=== PATIENT | male | born 1945 | race Two or more races ===

== ENCOUNTER 2017-06-16 09:24 | Inpatient (IN) | payer OTHER, MEDICARE ==
--- NOTE | 2017-06-16 09:43 | EDPHY ---
H & P Time Seen by Provider: 06/16/17 09:39 HPI/ROS: CHIEF COMPLAINT: Right arm/hand weakness HISTORY OF PRESENT ILLNESS: The patient is a 72-year-old male who presents emergency department with hand weakness. The patient awoke from sleep 2 days ago and thought "I slept on it wrong. He had numbness and tingling in his hand. Since that time his symptoms have worsened. He has had progressive weakness and numbness. Is primarily limited to his right hand. 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 He denies any arm weakness. No neck pain. No headache or visual change. No other focal neurologic deficit. No recent trauma or fall. REVIEW OF SYSTEMS: My complete review of systems is negative except as mentioned in the HPI. Past Medical/Surgical History: BPH Social history: Patient does not smoke. Smoking Status: Former smoker Physical Exam: Vitals noted GENERAL: Well-appearing, in no acute distress, alert. HEENT: Eyes normal to inspection, normal pharynx, no signs of dehydration. NECK: No thyromegaly, no lymphadenopathy, supple. RESPIRATORY: Clear to auscultation bilaterally, no rales, rhonchi or wheezing. CVS: Regular rate and rhythm, no rubs, murmurs, or gallops. ABDOMEN: Soft, nontender, nondistended, no organomegaly. BACK: Normal to inspection, no CVA tenderness. SKIN: Normal color, no rash, warm, dry. No pallor. EXTREMITIES: No pedal edema, no calf tenderness, no Homans sign or cords, no joint swelling. Patient has swelling over his left forearm. The patient states that this been present for 20 years. No erythema or warmth. NEURO/PSYCH: Higher functions: Alert and Oriented x3. Normal speech and cognition. Normal mood and affect. Cranial nerves: Normal as tested. Cerebellar: Normal as tested. Good finger to nose, good [id number], normal gait. 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 He is unable to spread his fingers. He is unable to extend his thumb. Patient has strong wrist extension and flexion. Patient's by 7 tricep muscle group appear equal strength and symmetric with the left arm. Normal sensation. Normal reflexes. Constitutional: Initial Vital Signs Temperature (C) 36.4 C 06/16/17 09:38 Heart Rate 98 06/16/17 09:38 Respiratory Rate 20 06/16/17 09:38 Blood Pressure 179/93 H 06/16/17 09:38 O2 Sat (%) 91 L 06/16/17 09:38 O2 Delivery Mode Room Air Allergies/Adverse Reactions: No Known Allergies Allergy (Verified 06/16/17 09:37) Home Medications: Medication Instructions Recorded Herbal Drugs 06/16/17 Medical Decision Making ED Course/Re-evaluation: In the emergency department I discussed possible etiologies with the patient. I answered all his questions. Neurology was paged. I discussed the case with Dr. Patel from Neurology. He recommended the patient not have a CT scan of his brain. This was cancelled. He recommended MRI without contrast of the brain. Dr. Patel does not want cervical imaging at this time. I discussed this with the patient. He will be transferred to the [facility] emergency department for evaluation and imaging. I discussed the case with Dr. Westfall who accepted the patient. EMTALA was completed. 955: Sinus rhythm at 92. Normal axis. Normal intervals. No ST or T-wave abnormality. I rechecked the patient while here. He had no new focal neurologic deficits. 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 10 30: The patient had elevated troponin at 0.045. Repeat EKG was ordered. Repeat EKG: Sinus rhythm at 80. Normal axis. Normal intervals. No ST or T- wave abnormality. Differential Diagnosis: My differential includes but is not limited to nerve palsy, brachial plexus injury, disc herniation, ischemic CVA, hemorrhagic CVA, dissection, aneurysm - Data Points Laboratory Results: Laboratory Results 06/16/17 08:55 06/16/17 08:55 06/16/17 06/16/17 06/16/17 08:55 08:55 08:55 WBC 8.98 10^3/uL 10^3/uL (3.80-9.50) RBC 5.73 10^6/uL 10^6/uL (4.40-6.38) Hgb 16.5 g/dL g/dL (13.7-17.5) Hct 50.5 % % (40.0-51.0) MCV 88.1 fL fL (81.5-99.8) MCH 28.8 pg pg (27.9-34.1) MCHC 32.7 g/dL g/dL (32.4-36.7) RDW 12.9 % % (11.5-15.2) Plt Count 235 10^3/uL 10^3/uL (150-400) MPV 9.2 fL fL (8.7-11.7) Neut % (Auto) 84.0 % H % (39.3-74.2) Lymph % (Auto) 10.9 % L % (15.0-45.0) Payne % (Auto) 3.6 % L % (4.5-13.0) Eos % (Auto) 0.9 % % (0.6-7.6) Baso % (Auto) 0.3 % % (0.3-1.7) Nucleat RBC Rel Count 0.0 % % (0.0-0.2) Absolute Neuts (auto) 7.54 10^3/uL H 10^3/uL (1.70-6.50) Absolute Lymphs (auto) 0.98 10^3/uL L 10^3/uL (1.00-3.00) Absolute Monos (auto) 0.32 10^3/uL 10^3/uL (0.30-0.80) Absolute Eos (auto) 0.08 10^3/uL 10^3/uL (0.03-0.40) Absolute Basos (auto) 0.03 10^3/uL 10^3/uL (0.02-0.10) Absolute Nucleated RBC 0.00 10^3/uL 10^3/uL (0-0.01) Immature Gran % 0.3 % % (0.0-1.1) Immature Gran # 0.03 10^3/uL 10^3/uL (0.00-0.10) PT 13.9 SEC SEC (12.0-15.0) INR 1.08 (0.83-1.16) APTT 28.7 SEC SEC (23.0-38.0) Sodium 141 mEq/L mEq/L (134-144) Potassium 4.0 mEq/L mEq/L (3.5-5.2) Chloride 99 mEq/L mEq/L (97-110) Carbon Dioxide 26 mEq/l mEq/l (22-31) Anion Gap 16 mEq/L mEq/L (8-16) BUN 22 mg/dL mg/dL (7-23) Creatinine 1.2 mg/dL mg/dL (0.7-1.3) Estimated GFR 60 Glucose 120 mg/dL H mg/dL (70-100) Calcium 9.3 mg/dL mg/dL (8.5-10.4) Troponin I 0.045 ng/mL H ng/mL (0.000-0.034) Departure - Departure Disposition: [facility] Inpatient Acute Clinical Impression: Right hand weakness Condition: Good Referrals: NONE *PRIMARY CARE P,. [Primary Care Provider] - As per Instructions
--- NOTE | 2017-06-16 09:56 | CPEKG ---
Heart Rate: 92 RR Interval: 652 P-R Interval: 148 QRSD Interval: 96 QT Interval: 404 QTC Interval: 500 P Culber[place]: 70 QRS [place]: 71 T Wave [place]: 56 EKG Severity - ABNORMAL ECG - EKG Impression: SINUS RHYTHM EKG Impression: PROBABLE LEFT ATRIAL ABNORMALITY EKG Impression: BORDERLINE T WAVE ABNORMALITIES EKG Impression: BORDERLINE PROLONGED QT INTERVAL Electronically Signed By: Sybil Scott 16-Jun-2017 14:51:53
[2017-06-16 10:03] LABS: PLATELET COUNT 235 10^3/uL (150-400)
[2017-06-16 10:27] LABS: INR 1.08 (0.83-1.16); PROTIME(PATIENT) 13.9 SEC (12.0-15.0)
--- NOTE | 2017-06-16 11:04 | CPEKG ---
Heart Rate: 80 RR Interval: 750 P-R Interval: 160 QRSD Interval: 94 QT Interval: 408 QTC Interval: 471 P Cambridge: 68 QRS Cambridge: 64 T Wave Cambridge: 52 EKG Severity - BORDERLINE ECG - EKG Impression: SINUS RHYTHM EKG Impression: PROBABLE LEFT ATRIAL ABNORMALITY Electronically Signed By: Sybil Scott 16-Jun-2017 14:51:53
[2017-06-16] MEDS ORDERED: CLOPIDOGREL BISULFATE 75 MG TAB PO ONE (13:53)
[2017-06-16] MEDS ORDERED: IOPAMIDOL (ISOVUE 370) 100 ML BTL IV ONE (13:59)
[2017-06-16] MEDS ORDERED: LABETALOL HCL 5 MG/ML 20 ML MDV IVP PRN (14:22)
[2017-06-16] MEDS ORDERED: ONDANSETRON 4 MG/2 ML VIAL IVP PRN (14:26)
[2017-06-16] MEDS ORDERED: ACETAMINOPHEN 325 MG TAB PO PRN (14:26)
--- NOTE | 2017-06-16 14:53 | EDPHY ---
H & P Time Seen by Provider: 06/16/17 09:39 HPI/ROS: CHIEF COMPLAINT: Right hand weakness HISTORY OF PRESENT ILLNESS: 72-year-old male presents to the emergency department by ambulance from [facility] with right hand weakness. The patient states that he woke up 2 days ago and thought that he "slept wrong ". He states he is having difficulty gripping things and moving his right hand. He has no associated headache. No reported trauma. No chest pain or difficulty breathing. Denies symptoms in the left upper extremity or in his lower extremities bilaterally. REVIEW OF SYSTEMS: Constitutional: No fever, no chills. Eyes: No double or blurry vision. ENT: No sore throat. Respiratory: No cough, no shortness of breath. Cardiac: No chest pain. Gastrointestinal: No abdominal pain, vomiting or diarrhea. Genitourinary: No dysuria. Musculoskeletal: No neck or back pain. Skin: No rashes. Neurological: No headache. Past Medical/Surgical History: Negative Social History: Single Smoking Status: Former smoker Physical Exam: General Appearance: Alert, no distress. Blood pressure 187/107. Mentating normally and answering questions appropriately. Eyes: Pupils equal and round. Extraocular motions are all intact. ENT: Mouth: Mucous membranes moist. Respiratory: No wheezing, rhonchi, or rales, lungs are clear to auscultation. Cardiovascular: Regular rate and rhythm. Gastrointestinal: Abdomen is soft and nontender, no masses, no rebound or guarding, bowel sounds normal. Neurological: Alert and oriented x 3, cranial nerves II through XII grossly intact Skin: Warm and dry, no rashes. Musculoskeletal: Nontender to palpate along the cervical, thoracic or lumbar spine. Neck is supple. Extremities: Swelling noted in the volar aspect of the proximal left forearm which is chronic for him. Nontender to palpate. 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 Unable to extend or family was fingers out. He is unable to touch his thumb to his small finger. He has normal sensation to light touch with normal 2 point discrimination. Strong radial pulse at his right wrist. Biceps and triceps strength is equal. Normal gait. Psychiatric: Patient is oriented X 3, there is no agitation. Constitutional: Initial Vital Signs Temperature (C) 36.4 C 06/16/17 09:38 Heart Rate 98 06/16/17 09:38 Respiratory Rate 20 06/16/17 09:38 Blood Pressure 179/93 H 06/16/17 09:38 O2 Sat (%) 91 L 06/16/17 09:38 O2 Delivery Mode Room Air Allergies/Adverse Reactions: No Known Allergies Allergy (Verified 06/16/17 09:37) Home Medications: Medication Instructions Recorded Aspirin [Aspirin 325 mg (*)] 650 mg PO Q2D 06/16/17 Herbals/Supplements -Info Only 1 ea PO DAILY 06/16/17 Naproxen Sod/Diphenhydramine 1 each PO HS 06/16/17 [Aleve Pm Caplet] Medical Decision Making - Diagnostics Imaging Results: Imaging Impressions Brain MRI 06/16/17 11:59 Impression: Moderate periventricular and deep hemispheric white matter change, which is nonspecific and can be seen with small vessel ischemic disease. There is diffusion restriction of one white matter lesion suggesting acute lacunar infarct in the left periventricular location at the junction of the posterior left frontal anteroparietal region. No other findings for acute infarct. Mild generalized cerebral atrophy. Results called and discussed with Taryn Carter PA-C on June 16, 2017 at 1331 hours. Cervical Spine MRI 06/16/17 11:59 Impression: Mild multilevel degenerative disk and degenerative joint disease of the cervical spine as detailed above by level. Results called and discussed with Taryn Carter PA-C, on 06/16/2017, 13:55. Imaging: Discussed imaging studies w/ crew caller Radiologist ED Course/Re-evaluation: 72-year-old male presents to the department with right hand weakness. The patient was sent from [facility] where they spoke with the on- call neurologist, Dr. Bert Patel. MRI of the brain and cervical spine were ordered which revealed an acute 8 mm lacunar infarct in the left frontoparietal junction of the brain. There is small vessel ischemic changes noted in the brain as well. MRI of the cervical spine revealed diffuse degenerative changes with mild to moderate stenosis. This was reported to me by Dr. Fabián Aguero. I spoke with Dr. Bert Patel about patient's MRI findings. He recommended 75 mg of Plavix p. o. today and daily. He also recommended obtaining CTA of the head and the neck prior to going to the floor. Patient will be admitted to Dr. Dyana Dougherty to the Ortho Neuro floor. The case was discussed with Dr. Gene Westfall, secondary supervising physician, who did not directly evaluate the patient but agrees with treatment and plan. Differential Diagnosis: Including but not limited to CVA, cord compression, radial nerve palsy, electrolyte abnormality - Data Points Laboratory Results: Laboratory Results 06/16/17 08:55 06/16/17 08:55 06/16/17 06/16/17 06/16/17 08:55 08:55 08:55 WBC 8.98 10^3/uL 10^3/uL (3.80-9.50) RBC 5.73 10^6/uL 10^6/uL (4.40-6.38) Hgb 16.5 g/dL g/dL (13.7-17.5) Hct 50.5 % % (40.0-51.0) MCV 88.1 fL fL (81.5-99.8) MCH 28.8 pg pg (27.9-34.1) MCHC 32.7 g/dL g/dL (32.4-36.7) RDW 12.9 % % (11.5-15.2) Plt Count 235 10^3/uL 10^3/uL (150-400) MPV 9.2 fL fL (8.7-11.7) Neut % (Auto) 84.0 % H % (39.3-74.2) Lymph % (Auto) 10.9 % L % (15.0-45.0) Bracken % (Auto) 3.6 % L % (4.5-13.0) Eos % (Auto) 0.9 % % (0.6-7.6) Baso % (Auto) 0.3 % % (0.3-1.7) Nucleat RBC Rel Count 0.0 % % (0.0-0.2) Absolute Neuts (auto) 7.54 10^3/uL H 10^3/uL (1.70-6.50) Absolute Lymphs (auto) 0.98 10^3/uL L 10^3/uL (1.00-3.00) Absolute Monos (auto) 0.32 10^3/uL 10^3/uL (0.30-0.80) Absolute Eos (auto) 0.08 10^3/uL 10^3/uL (0.03-0.40) Absolute Basos (auto) 0.03 10^3/uL 10^3/uL (0.02-0.10) Absolute Nucleated RBC 0.00 10^3/uL 10^3/uL (0-0.01) Immature Gran % 0.3 % % (0.0-1.1) Immature Gran # 0.03 10^3/uL 10^3/uL (0.00-0.10) PT 13.9 SEC SEC (12.0-15.0) INR 1.08 (0.83-1.16) APTT 28.7 SEC SEC (23.0-38.0) Sodium 141 mEq/L mEq/L (134-144) Potassium 4.0 mEq/L mEq/L (3.5-5.2) Chloride 99 mEq/L mEq/L (97-110) Carbon Dioxide 26 mEq/l mEq/l (22-31) Anion Gap 16 mEq/L mEq/L (8-16) BUN 22 mg/dL mg/dL (7-23) Creatinine 1.2 mg/dL mg/dL (0.7-1.3) Estimated GFR 60 Glucose 120 mg/dL H mg/dL (70-100) Calcium 9.3 mg/dL mg/dL (8.5-10.4) Troponin I 0.045 ng/mL H ng/mL (0.000-0.034) Medications Given: Discontinued Medications Clopidogrel Bisulfate (Plavix) 75 mg PO EDNOW ONE Stop: 06/16/17 13:54 Last Admin: 06/16/17 14:40 Dose: 75 mg Departure - Departure Disposition: [facility] Inpatient Acute Clinical Impression: Right hand weakness CVA (cerebral vascular accident) Qualifiers: CVA mechanism: embolism Precerebral and cerebral artery: unspecified precerebral artery Qualified Code(s): I63.10 - Cerebral infarction due to embolism of unspecified precerebral artery Condition: Good
--- NOTE | 2017-06-16 15:45 | GHP ---
[f rep st] HISTORY AND PHYSICAL DATE OF ADMISSION: 06/16/2017 CHIEF COMPLAINT: Right hand weakness. HISTORY OF PRESENT ILLNESS: The patient is a 72-year-old male, who noticed some tingling that lasted a few minutes to his right hand 3 days ago. It initially went away. He woke up the next morning an d his entire right hand was numb. He stayed home from work thinking he just slept on it funny and th en went to work yesterday and worked 8 hours. 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 He denies any chest pain or shortness of breath. He has maybe noticed a little decreased exercise tolerance when he is huntin g at altitude. PAST MEDICAL HISTORY: BPH which he self-treats with herbal supplements. MEDICATIONS: Please see computer record for full, detailed list. He takes quite a bit of ibuprofen. ALLERGIES: No known drug allergies. SOCIAL HISTORY: Quit smoking at 71 years. Prior to that, smoked 2 packs per day for 40 years. Jocelyn ks alcohol 1-2 drinks 3 times a week. He lives alone; he is . 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 REVIEW OF SYSTEMS: A complete review of systems was obtained. Review of systems negative on constit utional, HEENT, GI, pulmonary, cardiovascular, , hematology, skin, musculoskeletal, endocrine, psyc h, and for the positives as under HPI. FAMILY HISTORY: Mother of bladder cancer. Father had hypertension, [place] x2, and eventually of a brain aneurysm. PHYSICAL EXAMINATION: GENERAL: A well-developed, well-nourished male, in no acute distress. VITAL SIGNS: Temperature is 36.8, pulse 78, blood pressure 180/116, saturating 92% on room air. HEENT: E yes: Normal conjunctivae. Pupils equal and reactive to light. Normal ears and nose. Hearing intac t. Normal lips and teeth. Oropharynx moist. NECK: Trachea midline. No thyromegaly. CHEST: Norm al effort. LUNGS: Clear to auscultation bilaterally. CARDIOVASCULAR: Regular rhythm. No murmur. No lower extremity edema. ABDOMEN: Soft, nontender. No hepatosplenomegaly. SKIN: Warm, dry, int act. No rash. MUSCULOSKELETAL: No cyanosis or clubbing. Strength is 1/5 in his right hand instrumentation technician. Proximal strength of the shoulders is still intact. Lower extremity strength and sensation are monae l. NEUROLOGIC: Cranial nerves intact otherwise intact. PSYCHIATRIC: Alert and oriented x3. Monae l affect. Normal judgment. Normal memory. LABORATORY DATA: White count 8.98, hematocrit 50.5, platelets 235. Sodium 141, potassium 4.0, chlor robert 99, bicarb 26, BUN 22, creatinine 1.2, glucose 120. Troponin 0.048. INR is 1.08. EKG reviewed by me: My personal interpretation: Normal sinus rhythm, no ST-T wave changes. IMAGING: Cervical MRI is negative. MRI of the brain shows an acute lacunar stroke on the left. DISPOSITION: I have spoken with SULTANA Carter the emergency room provider. The patient will be a dmitted to Orthopedic Neurology with telemetry. ASSESSMENT AND PLAN: 1. Acute stroke, lacunar, probably hypertension related. CT angiogram of the head and neck are pend ing. I will also order an echocardiogram. We will start him on a daily aspirin and check a lipid pa pratik in the morning. Will consult Physical Therapy and Occupational Therapy. 2. Hypertension. We will allow permissive hypertension acutely, although I wonder at this point if his elevated blood pressure may be due to untreated underlying essential hypertension. We will discu ss with Neurology the timing of starting oral medications. 3. Borderline troponin elevation. He really has minimal symptoms, except some very mild decreased e xercise tolerance when he exercises at altitude. He may eventually benefit from stress testing. 4. Benign prostatic hypertrophy. He is currently satisfied with his management on an herbal medicati on. Could consider Flomax. 5. Code status: Full. 6. Admission status: We will admit to observation and re-evaluate tomorrow regarding ongoing inpati ent needs. 7. Deep venous thrombosis prophylaxis. He is high risk. Will place on subcu Lovenox. /[id number]/MODL
--- NOTE | 2017-06-16 17:06 | ECHO ---
[email or web address] [address] [address] Main: [phone] Fax: [email or web address] Echocardiogram Name: DEJUAN BRYAN MR#: [id number] Study Date: 06/16/2017 Study Time: 02:58 PM Date of : 1945 Age: 72 year(s) Height: 193 cm (76 in.) Weight: 117.94 kg (260 lb.) BSA: 2.48 m2 Gender: Male Examination: Echo Indication: TIA, Rt Arm tingling Image Quality: Contrast: Requested by: Dyana Dougherty BP: 194 mmHg/120 mmHg Heart Rate: Rhythm: Normal sinus rhythm Indication: TIA, Rt Arm tingling Procedure Staff Retail Branch Manager: Juan Carlos Martinez Reading Physician: Rosendo Barragan Requesting Provider: Conclusions: Normal size left ventricle. Mildly to moderately reduced systolic funtion. EF is 43 %. Grade 1 diastolic dysfunction (abnormal relaxation). There is mild to moderate global hypokinesis.. Normal RV function. The left atrium is normal in size. The right atrium is normal in size. No pericardial effusion. Measurements: Chambers Valvular Assessment AV/MV Valvular Assessment TV/PV Normal Normal Normal Name Value Range Name Value Range Name Value Range Ao Steph (MM): 4.4 cm (2.2 cm-3.7 AV Vmax: 1.64 m/s (1 m/s-1.7 PV Vmax: 1.10 m/s (0.6 m/s-0.9 cm) m/s) m/s) IVSd (2D): 1.2 cm (0.6 cm-1.1 AV maxP mmHg ( - ) PV PGmax: 5 mmHg ( - ) cm) LVOT Vmax: 0.68 m/s (0.7 m/s-1.1 LVDd (2D): 5.2 cm (4.2 cm-5.9 m/s) cm) MV E Vmax: 0.59 m/s ( - ) LVDs (2D): 4.2 cm (2.1 cm-4 MV A Vmax: 1.11 m/s ( - ) cm) MV E/A: 0.53 ( - ) LVPWd (2D): 1.4 cm (0.6 cm-1 cm) LVEF (BP): 43 % (>=55 %) Continued Measurements: Valvular Assessment AV/MV Name Value Patient: DEJUAN BRYAN Study Date: 06/16/2017 Page 1 of 2 02:58 PM MV E/E' Lateral: 8.80 Findings: Left Ventricle: Normal size left ventricle. Mild concentric LV hypertrophy. Mildly to moderately reduced systolic funtion. EF is 43 %. Grade 1 diastolic dysfunction (abnormal relaxation). There is mild to moderate global hypokinesis.. Right Ventricle: Normal size right ventricle. Normal RV function. Left Atrium: The left atrium is normal in size. There is no PFO by colorflow doppler. Right Atrium: The right atrium is normal in size. Mitral Valve: Mild mitral valve leaflet calcification is present. Mild mitral annular calcification. Aortic Valve: The aortic valve is tri-leaflet. Mild aortic cusp calcification is noted. No aortic valve stenosis is present. Tricuspid Valve: The tricuspid valve appears normal. Pulmonic Valve: The pulmonic valve is normal in appearance and function. Aorta: The aorta is normal. Pericardium: No pericardial effusion. Exam Comments: Clinical correlation is recommended.. (No Signature Object) Patient: DEJUAN BRYAN Study Date: 06/16/2017 Page 2 of 2 02:58 PM [id number]
[2017-06-16] MEDS: LISINOPRIL 10 MG TAB PO SCH (18:00)
[2017-06-17] MEDS ORDERED: ASPIRIN 325 MG TAB PO SCH (09:00)
--- NOTE | 2017-06-17 09:46 | HOSPPROG ---
Hospitalist Progress Note Assessment/Plan: #Acute lacunar stroke: likely related to HTN -LDL not at goal, add statin. Plavix. PT/OT #BPH: on herbal supplement #Indeterminate troponin: TTE shows global hypokinesis, EF 43%. Stress test given intermittent dyspnea, HTN and tobacco hx #HTN: initially allowed permissive HTN. Better-controlled today on ACEI #Diet: cardiac #Disp: cont inpatient admission for cardiac stress test Subjective: hand weakness today. Objective: Vital Signs Temp Pulse Resp BP Pulse Ox 36.5 C 72 21 H 138/103 H 87 L 06/17/17 08:00 06/17/17 08:00 06/17/17 08:00 06/17/17 08:00 06/17/17 08:00 06/16/17 06/17/17 06/18/17 05:59 05:59 05:59 Intake Total 400 Output Total 500 Balance -100 PT 13.9 SEC (12.0-15.0) 06/16/17 08:55 INR 1.08 (0.83-1.16) 06/16/17 08:55 - Physical Exam Constitutional: no apparent distress Eyes: PERRL Ears, Nose, Mouth, Throat: moist mucous membranes, hearing normal Cardiovascular: regular rate and rhythym, no murmur, rub, or gallop, No edema Respiratory: no respiratory distress, no rales or rhonchi Gastrointestinal: normoactive bowel sounds, soft, non-tender abdomen Genitourinary: No burgess in urethra Musculoskeletal: other (right hand weakness) Neurologic: weakness (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
[2017-06-17] MEDS: LISINOPRIL 10 MG TAB PO SCH (10:21)
[2017-06-17] MEDS: ENOXAPARIN 40 MG/0.4 ML SYR SC SCH (10:21)
[2017-06-17] MEDS: CLOPIDOGREL BISULFATE 75 MG TAB PO SCH (10:21)
[2017-06-17] MEDS: ATORVASTATIN CALCIUM 20 MG TAB PO SCH (10:24)
--- NOTE | 2017-06-17 11:32 | PDMN ---
Medical Necessity Medical necessity: C/M review: est. > 2 MN LOS for eval and TX acute lacunar stroke, acute and persistent right hand weakness, indeterminate troponin requiring planned 06/17/2017 myocardial perfusion scan, ongoing cardiac monitoring, acute inpt PT/OT/ST, comorbid hypertension, BPH per 06/17/2017 Hospitalist progress note.
[2017-06-17] MEDS ORDERED: PNEUMOC 13-VAL CONJ-DIP CRM/PF 0.5 ML SYR IM ONE (13:36)
[2017-06-17] MEDS ORDERED: FLU VACC QS 2017-18 (3YR+)/PF 0.5 ML SYR (FLUARIX QUAD) IM ONE (13:36)
--- NOTE | 2017-06-17 15:09 | ASMTCMCOM ---
CM Note CM Note Notes: Pt admitted with acute lacunar infarct. PT/OT cleared. Cardiac stress test planned. Anticipate d/c with no CM needs but will continue to follow for any change in needs. Date Signed: 06/17/2017 03:10 PM Electronically Signed By:ARJUN Cesar
--- NOTE | 2017-06-17 15:38 | GCON ---
[f rep st] CONSULTATION NEUROLOGY CONSULTATION REFERRING PHYSICIAN: Dyana Dougherty MD CHIEF COMPLAINT: Hand weakness. HISTORY OF PRESENT ILLNESS: The patient is a very pleasant 72-year-old gentleman who has not seen doctors for many years and, as such, does not have any comorbidities treated at this point. He began having sensory and motor symptoms in his right hand Monday around 3:00, which waxed and waned , and then when he woke up Monday he had right hand weakness. He waited 2 days before seeking care and came in yesterday afternoon [place] [facility] He was transferred to our ER for an MRI brain, which showed a small lacunar-type infarct at the junction of the posterior left frontal and parietal white matter in the subcortical region. This is the localization for hand strength on the right matching with his symptoms. He had a CTA of his head and neck which showed no acute vascular abnormalities. Echocardiogram did show some global hypokinesis. He also had lower EF with some diastolic dysfunction. Left atrium was normal size. No PFO. No intracardiac thrombus. Repeat lipids showed an LDL of 114, total of 175. Troponins were elevated without anginal-type symptoms. REVIEW OF SYSTEMS: Ten-point review of system was done and only pertinent as per HPI. For past medical history, social history, family history, medications, and allergies, see Dr. Dougherty' H and P. PHYSICAL EXAMINATION: VITAL SIGNS: Blood pressure 137/84, temperature 36.4, pulse 75, respirations 16. GENERAL: No acute distress. HIGHER MENTAL FUNCTIONS: He is awake and alert. No aphasia. Cranial nerve exam normal 2 through 7, 11, and 12. No dysarthria. No swallowing problems. MOTOR: The patient has right hand weakness with weakness in finger abduction and flexion, and wrist extension, with some less prominent subjective numbness in the hand. Otherwise, motor exam was normal in terms of strength, tone, and reflexes throughout. SENSORY: Normal light touch outside of what is noted above. COORDINATION: Normal accuracy and normal gait. IMPRESSION/PLAN: 1. Lacunar infarct. 2. Hypertension, previously untreated. 3. Dyslipidemia. 4. Abnormal echocardiogram. Essentially, this gentleman likely had a small lacunar infarct due to uncontrolled high blood pressure with a hypertensive emergency-type syndrome, including end-organ dysfunction as evidenced by the lacunar infarct. He has not seen a doctor for many years and was unaware that he had high blood pressure. He has had blood pressures as high as 192/112 here in the hospital. We discussed at length that this is likely a lacunar stroke from untreated hypertension. He understands. Angiography of the head and neck was negative for acute changes. Echocardiogram, as noted above, is abnormal. Going forward, he needs to be on Plavix 75 mg daily indefinitely. He was not taking any antithrombotic when this event occurred. We discussed potential risks, benefits, and alternatives of Plavix. He should also be on a statin and blood pressure medication with close followup with primary care. He will establish primary care in [place] with the [facility] to closely monitor his blood pressure, lipids, blood sugar, etc. I understand he will be having stress testing for his heart which will be tomorrow. His hemoglobin A1c is pending and to be followed up by primary care. Going forward, I also recommend he have a 30-day event monitor and follow up with Cardiology regarding his cardiac status. We need to screen him for paroxysmal atrial fibrillation. He has had no atrial fibrillation, as far as I have been informed while here in the hospital. He has had PT evaluation for his right hand weakness and will follow his exercises. Finally, he will follow up with me in 4-6 weeks as an outpatient to review all the above. We will sign off and continue to follow this patient as needed. Please do not hesitate to call with any questions or changes in neurologic status with this very pleasant patient. TIME SPENT: Seventy total minutes floor time reviewing imaging, records, labs, direct counseling with the patient, and coordination of care. /[id number]/MODL MTDD
[2017-06-18] MEDS: CLOPIDOGREL BISULFATE 75 MG TAB PO SCH (08:27)
[2017-06-18] MEDS: ENOXAPARIN 40 MG/0.4 ML SYR SC SCH (08:27)
[2017-06-18] MEDS: ATORVASTATIN CALCIUM 20 MG TAB PO SCH (08:27)
[2017-06-18] MEDS: LISINOPRIL 10 MG TAB PO SCH (08:27)
--- NOTE | 2017-06-18 08:36 | HOSPPROG ---
Hospitalist Progress Note Assessment/Plan: #Acute lacunar stroke: likely related to HTN -LDL not at goal, add statin. Plavix. Home OT #BPH: on herbal supplement #Indeterminate troopnin: TTE shows global hypokinesis, EF 43%. Stress test given intermittent dyspnea, HTN and tobacco hx -initial Lexiscan imaging abnormal. I spoke with Dr. Coleman who said elective cath appropriate given no anginal sxs. Add BB -spoke with patient and he would rather have cath in hospital. Plan for cath on Monday #HTN: initially allowed permissive HTN. Better-controlled today on ACEI #Diet: cardiac #Disp: may DC today if normal Lexiscan Time spent on visit: 60 min. 40min reviewing data and counseling pt on treatment plan. Remaining time d/w Dr. Coleman and patient's son Subjective: hand still weak. No CP or SOB Objective: Vital Signs Temp Pulse Resp BP Pulse Ox 36.6 C 70 16 136/60 H 93 06/18/17 07:56 06/18/17 07:56 06/18/17 07:56 06/18/17 08:27 06/18/17 07:56 Laboratory Results 06/18/17 04:41 06/17/17 06/18/17 06/19/17 05:59 05:59 05:59 Intake Total 1999 Balance 1999 PT 13.9 SEC (12.0-15.0) 06/16/17 08:55 INR 1.08 (0.83-1.16) 06/16/17 08:55 - Physical Exam Constitutional: obese Eyes: PERRL Ears, Nose, Mouth, Throat: moist mucous membranes Cardiovascular: regular rate and rhythym Respiratory: no respiratory distress, no rales or rhonchi Gastrointestinal: normoactive bowel sounds Genitourinary: no bladder fullness Skin: warm Musculoskeletal: other (right hand puppy walker weak) Neurologic: AAOx3, CN II-XII Intact Psychiatric: interacting appropriately ICD10 Worksheet Patient Problems: Problems Problem Status Onset CVA (cerebral vascular accident) Acute Right hand weakness Acute Skier's thumb Acute Thumb laceration Acute
[2017-06-18] MEDS ORDERED: REGADENOSON 0.4 MG/5 ML SYR IVP ONE (09:30)
--- NOTE | 2017-06-18 11:21 | CPR ---
[f rep st] NONINVASIVE CARDIAC PROCEDURE REPORT DATE OF PROCEDURE: 06/18/2017 PROCEDURE PERFORMED: Pharmacologic stress test. INDICATION FOR PROCEDURE: Dyspnea on exertion and recent post CVA. PROCEDURE: After informed consent was obtained for Lexiscan nuclear stress test, the patient underwe nt infusion of Lexiscan 0.4 mg over 10 seconds. At peak hyperemia, he was injected with Tc-99m sesta mibi. The patient tolerated the procedure well. He had no ECG changes during pharmacologic stress. He had no symptoms. Paced heart rate of 72 beats in normal sinus rhythm with resting blood pressure of 148/81, with oxygen saturation of 89%. Prior to the start of the test, he was put on 4 L of oxyg en via nasal cannula. Oxygen increased to 93%. His oxygen saturations remained normal throughout th e study while on 4 L of oxygen. Post injection, blood pressure was 159/73 and decreased to 142/78 at 3 minutes post injection. CONCLUSION: 1. Normal pharmacologic stress. 2. Nuclear images pending. /[id number]/MODL
--- NOTE | 2017-06-18 12:55 | ASDISCHSUM ---
Discharge Information Plan Status:Home with No Needs Medically Cleared to Leave:06/20/2017 Discharge Date:06/21/2017 02:28 PM CM D/C Disposition:Home, Routine, Self-Care ADT D/C Disposition:Home, Routine, Self-Care Projected Discharge Date:06/21/2017 12:00 AM Transportation at D/C: Discharge Delay Reason: Follow-Up Date:06/21/2017 12:00 AM Discharge Slot: Final Diagnosis: Placement Information Patient Contact Information Contact Name:JARROD Relationship:Crow Address: City: [facility] Phone: [facility] Code: Email: Financial Information Financial Class: Primary Plan Desc:MEDICARE INPATIENT Primary Plan Number:[id number] Secondary Plan Desc:[employer]/MDR SUPPLEMENT Secondary Plan Number:[id number] Assessment Information [facility] CM Progress Note CM Note CM Note Notes: Pt admitted with acute lacunar infarct. PT/OT cleared. Cardiac stress test planned. Anticipate d/c with no CM needs but will continue to follow for any change in needs. Date Signed: 06/17/2017 03:10 PM Electronically Signed By:ARJUN Cesar Case Management Discharge Plan Note Case Management Discharge Discharge Order Complete? Answers: Yes Patient to Obtain Answers: Independently Medications Transportation Arranged Answers: Family/Friends Transport will Pick (Date 06/18/2017 12:00 AM & Time) DEEDEEALA Complete Answers: No Notes: NA Case Management Transport Answers: No Notes: NA Form Complete Faxed Final Orders Answers: No Notes: NA Agency/Facility Transfer Answers: No Notes: NA Report Printed & Faxed to Receiving Agency Family Notified Answers: Yes Discharge Comments Notes: Patient does not have a PCP. Gave patient names of practices and phone numbers to call and make an appointment. Since it is Monday, all the offices were closed today. Patient will call on Monday for an appointment week after per Dr. Trejo. Date Signed: 06/18/2017 12:59 PM Electronically Signed By:Keturah Apple LCSW [facility] CM Progress Note CM Note CM Note Notes: Chart reviewed. Angiogram done. See MD reports. Per therapies no needs identified. CM available should needs arise. Date Signed: 06/20/2017 03:57 PM Electronically Signed By:Jordyn Jain RN Intervention Information Intervention Type:*IM-Signed Date of Service:06/21/2017 01:26 PM Patient Type:Inpatient Staff Member:Claribel Lazo Hours: Discipline: Severity: Comment:
[2017-06-18] MEDS: METOPROLOL TARTRATE 25 MG TAB PO SCH (20:09)
[2017-06-19] MEDS: ATORVASTATIN CALCIUM 20 MG TAB PO SCH (08:59)
[2017-06-19] MEDS: CLOPIDOGREL BISULFATE 75 MG TAB PO SCH (09:00)
[2017-06-19] MEDS: METOPROLOL TARTRATE 25 MG TAB PO SCH ×2 (09:00→19:50)
[2017-06-19] MEDS: ENOXAPARIN 40 MG/0.4 ML SYR SC SCH (09:00)
--- NOTE | 2017-06-19 10:52 | HOSPPROG ---
Hospitalist Progress Note Assessment/Plan: #Acute lacunar stroke: likely related to HTN -LDL not at goal, add statin. Plavix. Home OT, speech therapy #BPH: on herbal supplement #CAD: TTE shows global hypokinesis, EF 43%. Lexiscan shows inferoseptal wall dyskinesis, ischemia of anteroseptal wall. -appreciate Cardiology consultation. -cont BB, statin, Plavix -plan for cath in morning. A1c pending #HTN: cont LACHO-I #Ischemic cardiomyopathy: EF 35%. Euvolemic. Cont BB and LACHO-i. No Lasix needed now #Diet: cardiac #Disp: NPO at [place] for cath tomorrow morning Time spent on visit: 35 min counseling patient on treatment plan and cath Subjective: had SOB with stress yesterday. No CP, dizziness or SOB today Objective: Vital Signs Temp Pulse Resp BP Pulse Ox 36.4 C 66 14 152/92 H 90 L 06/19/17 07:39 06/19/17 07:39 06/19/17 07:39 06/19/17 07:39 06/19/17 07:39 Laboratory Results 06/18/17 04:41 06/18/17 06/19/17 06/20/17 05:59 05:59 05:59 Intake Total 1999 350 Balance 1999 350 PT 13.9 SEC (12.0-15.0) 06/16/17 08:55 INR 1.08 (0.83-1.16) 06/16/17 08:55 - Physical Exam Constitutional: no apparent distress Eyes: PERRL Ears, Nose, Mouth, Throat: moist mucous membranes, hearing normal Cardiovascular: regular rate and rhythym, No edema Respiratory: no respiratory distress, no rales or rhonchi Gastrointestinal: normoactive bowel sounds, soft, non-tender abdomen Genitourinary: no bladder fullness Skin: warm Neurologic: AAOx3, CN II-XII Intact, other (mildy improved right hand second facing baster) Psychiatric: interacting appropriately ICD10 Worksheet Patient Problems: Problems Problem Status Onset CVA (cerebral vascular accident) Acute Right hand weakness Acute Skier's thumb Acute Thumb laceration Acute
[2017-06-19] MEDS ORDERED: ASPIRIN EC 325 MG TAB PO ONE (13:57)
--- NOTE | 2017-06-19 14:03 | PDCARCONS ---
Cardiology Consult Reason for Consult: Abnormal stress test Chief Complaint: Inability to move the left hand Requesting Physician: Neil History of Present Illness: 72-year-old male history of untreated hypertension, hyperlipidemia admitted with a new lacunar infarct characterized by hand weakness. He had indeterminate troponins. As a result he had a nuclear stress test which was abnormal with reduced LV function of 45%. I am asked to consider him for angiography for further risk stratification and to guide therapy. He has no prior cardiovascular history. In particular no history of myocardial infarction , valvular heart disease, dysrhythmia. Cardiac review of systems is negative for chest pain, shortness of breath, PND, orthopnea. He has had no palpitations syncope or near syncope. Medications Generic Name Dose Route Start Last Admin Trade Name Freq PRN Reason Stop Dose Admin Atorvastatin Calcium 20 mg 06/17/17 10:00 06/19/17 08:59 Lipitor PO 12/14/17 09:59 20 mg DAILY GAMAL Clopidogrel Bisulfate 75 mg 06/17/17 09:00 06/19/17 09:00 Plavix PO 12/14/17 08:59 75 mg DAILY GAMAL Metoprolol Tartrate 25 mg 06/18/17 21:00 06/19/17 09:00 Lopressor PO 12/15/17 20:59 25 mg BID GAMAL History Information - Allergies/Home Medication List Allergies/Adverse Reactions: No Known Allergies Allergy (Verified 06/16/17 09:37) Home Medications: Herbals/Supplements -Info Only 1 ea PO DAILY 06/16/17 [Last Taken Unknown] Naproxen Sod/Diphenhydramine [Aleve Pm Caplet] 1 each PO HS 06/16/17 [Last Taken 06/15/17] Past Medical History: - Social History Smoking Status: Former smoker Cardiac History - Cardiac History Cardiac Risk Factors: hypertension (>140/90), lipidemia, age > 65, male, none ( Smoke until 6 years ago) Physical Exam Physical Exam: Temp Pulse Resp BP Pulse Ox 36.7 C 68 16 153/93 H 89 L 06/19/17 11:20 06/19/17 11:20 06/19/17 11:20 06/19/17 11:20 06/19/17 11:20 O2 (L/minute) 3 Constitutional: no apparent distress, appears nourished Eyes: PERRL Ears, Nose, Mouth, Throat: moist mucous membranes Cardiovascular: regular rate and rhythym, no murmur, rub, or gallop, pulses symmetric bilaterally Peripheral Pulses: 1+: carotid (R), carotid (L) Respiratory: no respiratory distress, reduced air movement Gastrointestinal: normoactive bowel sounds, soft, non-tender abdomen, no palpable masses Genitourinary: no bladder fullness Skin: warm, normal color, no rashes or abrasions Musculoskeletal: other (Left forearm with balled muscle.) Neurologic: AAOx3, facial droop, other (Weakness right hand.) Psychiatric: interacting appropriately, not anxious Lymph, Heme, Immunologic: no cervical LAD, no supraclavicular LAD Lab and Imaging 06/16/17 08:55 06/18/17 04:41 WBC 8.98 10^3/uL (3.80-9.50) 06/16/17 08:55 RBC 5.73 10^6/uL (4.40-6.38) 06/16/17 08:55 Hgb 16.5 g/dL (13.7-17.5) 06/16/17 08:55 Hct 50.5 % (40.0-51.0) 06/16/17 08:55 MCV 88.1 fL (81.5-99.8) 06/16/17 08:55 MCH 28.8 pg (27.9-34.1) 06/16/17 08:55 MCHC 32.7 g/dL (32.4-36.7) 06/16/17 08:55 RDW 12.9 % (11.5-15.2) 06/16/17 08:55 Plt Count 235 10^3/uL (150-400) 06/16/17 08:55 MPV 9.2 fL (8.7-11.7) 06/16/17 08:55 Neut % (Auto) 84.0 % (39.3-74.2) H 06/16/17 08:55 Lymph % (Auto) 10.9 % (15.0-45.0) L 06/16/17 08:55 [place] % (Auto) 3.6 % (4.5-13.0) L 06/16/17 08:55 Eos % (Auto) 0.9 % (0.6-7.6) 06/16/17 08:55 Baso % (Auto) 0.3 % (0.3-1.7) 06/16/17 08:55 Nucleat RBC Rel Count 0.0 % (0.0-0.2) 06/16/17 08:55 Absolute Neuts (auto) 7.54 10^3/uL (1.70-6.50) H 06/16/17 08:55 Absolute Lymphs (auto) 0.98 10^3/uL (1.00-3.00) L 06/16/17 08:55 Absolute Monos (auto) 0.32 10^3/uL (0.30-0.80) 06/16/17 08:55 Absolute Eos (auto) 0.08 10^3/uL (0.03-0.40) 06/16/17 08:55 Absolute Basos (auto) 0.03 10^3/uL (0.02-0.10) 06/16/17 08:55 Absolute Nucleated RBC 0.00 10^3/uL (0-0.01) 06/16/17 08:55 Immature Gran % 0.3 % (0.0-1.1) 06/16/17 08:55 Immature Gran # 0.03 10^3/uL (0.00-0.10) 06/16/17 08:55 PT 13.9 SEC (12.0-15.0) 06/16/17 08:55 INR 1.08 (0.83-1.16) 06/16/17 08:55 APTT 28.7 SEC (23.0-38.0) 06/16/17 08:55 Sodium 142 mEq/L (134-144) 06/18/17 04:41 Potassium 4.7 mEq/L (3.5-5.2) 06/18/17 04:41 Chloride 104 mEq/L (97-110) 06/18/17 04:41 Carbon Dioxide 30 mEq/l (22-31) 06/18/17 04:41 Anion Gap 8 mEq/L (8-16) 06/18/17 04:41 BUN 28 mg/dL (7-23) H 06/18/17 04:41 Creatinine 1.1 mg/dL (0.7-1.3) 06/18/17 04:41 Estimated GFR > 60 12/24/17 04:41 Glucose 105 mg/dL (70-100) H 06/18/17 04:41 Calcium 9.0 mg/dL (8.5-10.4) 06/18/17 04:41 Troponin I 0.035 ng/mL (0.000-0.034) H 06/17/17 01:45 Triglycerides 82 mg/dL (40-150) 06/17/17 05:50 Cholesterol 175 mg/dL (140-220) 06/17/17 05:50 Cholesterol Risk Factr 0.8 (0.2-1.0) 06/17/17 05:50 LDL Cholesterol, Calc 114 mg/dL (80-100) H 06/17/17 05:50 LDL Risk Factor 1.0 (0.2-1.0) 06/17/17 05:50 VLDL Cholesterol 16 mg/dL (8-25) 06/17/17 05:50 Non-HDL Cholesterol 130 mg/dL (90-129) H 06/17/17 05:50 HDL Cholesterol 45 mg/dL (40-65) 06/17/17 05:50 LDL/HDL Ratio 2.53 RATIO (1.00-3.64) 06/17/17 05:50 Cholesterol/HDL Ratio 3.89 RATIO (1.00-4.97) 06/17/17 05:50 Laboratory Tests 06/16/17 06/16/17 06/17/17 08:55 19:02 01:45 Creatinine Troponin I 0.045 H 0.038 H 0.035 H LDL Cholesterol, Calc 06/17/17 06/18/17 05:50 04:41 Creatinine 1.1 Troponin I LDL Cholesterol, Calc 114 H EKG Interpretation: Positive for: other (Sinus rhythm without acute ST-T changes.) Echocardiogram: Echocardiogram revealed reduced LV systolic function ejection fraction of 43% without focal valvular abnormalities. Nuclear stress test showed multi-vessel distribution with anterior, inferior reversible defects and ejection fraction of 35%. A/P Assessment: Impression: 72-year-old male admitted with a lacunar infarct characterized by right hand weakness. Multiple cardiovascular risk factors including age, male sex, smoking history, hypertension untreated, hyperlipidemia untreated with newly diagnosed LV systolic dysfunction ejection fraction 35-40% by noninvasive imaging and multivessel perfusion abnormalities consistent with an underlying ischemic etiology. Recommendations aggressive medical therapy with risk factor modification. Agree with diagnostic coronary angiogram to define best medical/interventional therapy. Risks and benefits of this approach were discussed with the patient will proceed tomorrow morning using the right radial artery approach. Plan: Diagnostic angiogram from the right radial artery in the morning. Past Medical History PMH: - Personal History Current Tetanus/Diphtheria Vaccine: Yes Current Tetanus Diphtheria and Acellular Pertussis (TDAP): Yes Tetanus Vaccine Date: < 10 years - Medical/Surgical History Hx Asthma: No Hx Chronic Respiratory Disease: No Hx Cardiac Disease: No Hx Diabetes: No Hx Renal Disease: No Hx Alcoholism: No Hx Cirrhosis: No Hx HIV/AIDS: No Hx Splenectomy or Spleen Trauma: No Other PMH: BPH - Family History Significant Family History: No pertinent family hx - Social History Smoking Status: Former smoker Additional Social History: Review of Systems Review of Systems: - Review of Systems Constitutional: denies: chills, fever, malaise EENTM: no symptoms reported Respiratory: no symptoms reported Cardiac: no symptoms reported Gastrointestinal/Abdominal: no symptoms reported Genitourinary: no symptoms Musculoskelatal: no symptoms Skin: no symptoms Neurological: weakness Hematologic/Lymphatic: no symptoms reported Immunologic/allergic: no symptoms reported
[2017-06-19] MEDS ORDERED: ATORVASTATIN CALCIUM 20 MG TAB PO SCH (14:11)
[2017-06-19 14:36] LABS: PLATELET COUNT 218 10^3/uL (150-400)
[2017-06-19 14:46] LABS: INR 1.04 (0.83-1.16); PROTIME(PATIENT) 13.8 SEC (12.0-15.0)
--- NOTE | 2017-06-19 15:09 | CPEKG ---
Heart Rate: 75 RR Interval: 800 P-R Interval: 124 QRSD Interval: 90 QT Interval: 384 QTC Interval: 429 P [place]: 33 QRS [place]: 33 T Wave [place]: 86 EKG Severity - NORMAL ECG - EKG Impression: SINUS RHYTHM Electronically Signed By: Jorge Gallardo 20-Jun-2017 07:50:11
[2017-06-20] MEDS ORDERED: ASPIRIN EC 325 MG TAB PO ONE (06:00)
[2017-06-20] MEDS: CLOPIDOGREL BISULFATE 75 MG TAB PO SCH (07:47)
[2017-06-20] MEDS: METOPROLOL TARTRATE 25 MG TAB PO SCH ×2 (07:47→21:06)
[2017-06-20] MEDS: ATORVASTATIN CALCIUM 40 MG TAB PO SCH (07:47)
--- NOTE | 2017-06-20 09:21 | PDHPUP ---
History & Physical Update H&P update statement: This history and physical update is based on an assessment of the patient which was completed after admission or registration (within 24 hours), but prior to the surgery/procedure. H&P update: H&P reviewed & patient examined, no change in patient's condition since H&P completed
--- NOTE | 2017-06-20 09:21 | PDPROPOC ---
Sedation Plan of Care Sedation Plan of Care: vital signs stable, mental status noted, patient educated of risks, benefits, alternatives, patient can tolerate sedation ASA Classification: ASA 2 Planned drugs: fentanyl, midazolam Mallampati Score: Class 1 Mallampati Reference Image: Patient passed 3-3-2 rule?: Yes
[2017-06-20] MEDS ORDERED: LIDOCAINE 1% 300 MG/30 ML SDV ONE (09:25)
[2017-06-20] MEDS ORDERED: fentaNYL 100 MCG/2 ML INJ ONE (09:26)
[2017-06-20] MEDS ORDERED: VERAPAMIL 5 MG/2 ML VIAL ONE (09:26)
[2017-06-20] MEDS ORDERED: HEPARIN 10,000 UNIT/10 ML MDV ONE (09:26)
[2017-06-20] MEDS ORDERED: MIDAZOLAM 2 MG/2 ML VIAL ONE (09:26)
[2017-06-20] MEDS ORDERED: IOPAMIDOL (ISOVUE-370) 150 ML BTL IV ONE (09:27)
--- NOTE | 2017-06-20 10:25 | PDDXCAT ---
Diagnostic Cath Note - . Date: 06/20/17 Police Records Clerk: Richard High-risk criteria on non-invasive testing: stress-induced large perfusion defect (particularly if anterior) - Procedure Access: right wrist Procedure: left heart catheterization, coronary angiography, left ventriculogram - Materials Left Heart Cath size: 5F Left Heart Cath materials: pigtail, other ([email or web address]) - Findings-Left Heart Catheterization LM: Unobstructed LAD: Unobstructed LCX: Unobstructed RCA: Dominant: Unobstructed Ramus: Unobstructed EDP: 18 mm of mercury LVEF: 50 Wall motion: Normal Complications: None Estimated blood loss: <50ml Closure method: TR Band Assessment: Angiographically normal coronary arteries. Preserved LV systolic function ejection fraction 50%. Likely mild hypertensive cardiomyopathy Plan: Aggressive medical therapy with control blood pressure, antiplatelet therapy for recent TIA. Patient Problems: Problems Problem Status Onset Thumb laceration Acute Skier's thumb Acute Right hand weakness Acute CVA (cerebral vascular accident) Acute
[2017-06-20] MEDS ORDERED: amLODIPine BESYLATE 5 MG TAB PO ONE (11:00)
--- NOTE | 2017-06-20 13:09 | HOSPPROG ---
Hospitalist Progress Note Assessment/Plan: #Acute lacunar stroke: likely related to HTN -LDL not at goal, add statin. Plavix. Home OT, speech therapy -BP control #BPH: on herbal supplement #CAD: TTE shows global hypokinesis, EF 43%. Lexiscan shows inferoseptal wall dyskinesis, ischemia of anteroseptal wall. -Cath with normal coronaries, CDM likely due to HTN; EF 50% -appreciate Cardiology consultation -cont BB, statin, Plavix #HTN: cont BB, Norvasc #Mild cardiomyopathy: EF 50% on cath. Euvolemic. Cont BB and LACHO-i. No Lasix needed now #Diet: cardiac #Disp: NPO at [place] for cath tomorrow morning Time spent on visit: cont inpatient admission for neuro checks, telemetry and BP control Subjective: "woozy" after cath Objective: Vital Signs Temp Pulse Resp BP Pulse Ox 36.4 C 60 16 124/63 H 91 L 06/20/17 11:59 06/20/17 13:01 06/20/17 11:59 06/20/17 13:01 06/20/17 13:01 Laboratory Results 06/19/17 14:31 06/19/17 14:31 06/19/17 06/20/17 06/21/17 05:59 05:59 05:59 Intake Total 350 700 Balance 350 700 PT 13.8 SEC (12.0-15.0) 06/19/17 14:31 INR 1.04 (0.83-1.16) 06/19/17 14:31 - Physical Exam Constitutional: no apparent distress Eyes: PERRL Ears, Nose, Mouth, Throat: moist mucous membranes Cardiovascular: regular rate and rhythym, no murmur, rub, or gallop Respiratory: no respiratory distress, no rales or rhonchi Gastrointestinal: normoactive bowel sounds Genitourinary: No burgess in urethra Skin: warm Musculoskeletal: other (decreased right hand improvement spec; unchanged from yesterday) Neurologic: CN II-XII Intact, No numbness, No pronator drift, No facial droop Psychiatric: interacting appropriately ICD10 Worksheet Patient Problems: Problems Problem Status Onset CVA (cerebral vascular accident) Acute Right hand weakness Acute Skier's thumb Acute Thumb laceration Acute
--- NOTE | 2017-06-20 15:56 | ASMTCMCOM ---
CM Note CM Note Notes: Chart reviewed. Angiogram done. See MD reports. Per therapies no needs identified. CM available should needs arise. Date Signed: 06/20/2017 03:57 PM Electronically Signed By:Jordyn Jain RN
[2017-06-21 07:31] VITALS: PULSE 70
[2017-06-21] MEDS: CLOPIDOGREL BISULFATE 75 MG TAB PO SCH (08:10)
[2017-06-21] MEDS: METOPROLOL TARTRATE 25 MG TAB PO SCH (08:10)
[2017-06-21] MEDS: ATORVASTATIN CALCIUM 40 MG TAB PO SCH (08:11)
[2017-06-21] MEDS ORDERED: LISINOPRIL 20 MG TAB PO SCH (09:00)
[2017-06-21] MEDS ORDERED: amLODIPine BESYLATE 5 MG TAB PO SCH (09:00)
[2017-06-21 11:32] VITALS: BP 152/94; RESP 14; TEMP 97.5; O2SAT 92
--- NOTE | 2017-06-21 13:08 | GDS ---
[f rep st] DISCHARGE SUMMARY DISCHARGE DIAGNOSES: 1. Acute lacunar stroke, likely related to hypertension. 2. Benign prostatic hypertrophy. 3. Cardiomyopathy with preserved ejection fraction of 50%. 4. Accelerated hypertension. 5. Hypertensive cardiomyopathy. 6. Nonsustained ventricular tachycardia. PROCEDURES: Cardiac cath, 06/20/2017: Normal coronary arteries. Preserved LV systolic function with an EF of 50%. Likely mild hypertensive cardiomyopathy. HISTORY OF PRESENT ILLNESS: A 72-year-old male with BPH, who presented with some tingling in his right hand that started 3 days prior to admission. It initially went away, and then he woke up the next morning and his entire right hand was numb. He stayed home from work, thinking he just slept on it funny, and then worked an additional day. 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 He has not seen a physician in many years and is unaware of his blood pressure or cholesterol status. HOSPITAL COURSE: 1. Acute lacunar stroke: This is likely related to hypertension. No shunt on echocardiogram. No evidence of atrial fibrillation. He was evaluated by Neurology, who recommended Plavix, statin. He will be discharged home with home speech therapy and occupational therapy. Continue aggressive blood pressure control. 2. Accelerated hypertension. He has not been to a doctor in many years. Started on lisinopril and beta-miguel. He is to keep a log at home for the next 1-2 weeks and follow up with a primary care physician to up titrate as needed. 3. Hypertension-related cardiomyopathy. The initial echo showed an EF of 35% with diffuse hypokinesis and dyskinesis of the left inferoseptal wall. He underwent cardiac catheterization that showed normal coronaries but a mild cardiomyopathy with an EF of 50%. He will resume his beta miguel and statin. No Lasix is warranted at this time. He will follow up with Cardiology. 4. Hyperlipidemia, on statin. 5. Benign prostatic hypertrophy, on an herbal supplement. 6. Deconditioning. Hand cigar packer and shader improves every day. He will resume occupational therapy as an outpatient. 7. Nonsustained VT. The patient had an episode of 12-beat nonsustained VT, and he was asymptomatic. Electrolytes are within normal. I gave him warning signs and return precautions. DISPOSITION: Patient is stable for discharge home. MEDICATIONS: New medications: Atorvastatin 20 mg daily, lisinopril 20 mg daily , Plavix 75 mg daily, metoprolol 25 mg b.i.d. FOLLOWUP: 1. Dr. Ramos with Cardiology. 2. Dr. Patel with Neurology. 3. Establish care with a primary care physician. 4. Outpatient speech and occupational therapy. PHYSICAL EXAM: VITAL SIGNS: Today, temperature 36.4, blood pressure 152/94, heart rate 70s, respiration 14, 92% on room air. GENERAL: Overweight male in no acute distress, sitting in bed, smiling. HEENT: PERRLA. EOMI. Oropharynx clear. CV: Regular rate and rhythm. No murmurs, gallops, or rubs. No edema. LUNGS: Clear. No crackles or wheezing. Abdomen: Soft, nontender, nondistended. Positive bowel sounds. : No Mary. MUSCULOSKELETAL: Improved right hand cigar packer and shader today. NEURO: 2 through 12 intact. PSYCH: Alert and oriented x3. Time spent on discharge: Greater than 35 minutes, explaining followup plan, medications for patient, and coordinating discharge. /[id number]/MODL MTDD
== END 2017-06-21 14:28 | disposition home or self-care (01) | DRG 65 ==
LOC: CED 11:28 → F3N 15:25 → OBSVTOIN 06-17 11:23 → F2W 06-19 15:27
PROVIDERS: ADMIT Internal Medicine; ATTEND Internal Medicine
PROC: B2111ZZ Fluoroscopy of Multiple Coronary Arteries using Low Osmolar Contrast (ICD-10-PCS; principal; 2017-06-20)
PROC: B2151ZZ Fluoroscopy of Left Heart using Low Osmolar Contrast (ICD-10-PCS; principal; 2017-06-20)
PROC: 4A023N7 Measurement of Cardiac Sampling and Pressure, Left Heart, Percutaneous Approach (ICD-10-PCS; principal; 2017-06-20)
DX: I63.9 Cerebral infarction, unspecified (principal); R29.898 Other symptoms and signs involving the musculoskeletal system; I47.2 Ventricular tachycardia; N40.0 Benign prostatic hyperplasia without lower urinary tract symptoms; I11.9 Hypertensive heart disease without heart failure; Z87.891 Personal history of nicotine dependence
CPT/HCPCS: 80048-PO; 84484-PO; 85025-PO; 85610-PO; 85730-PO; 92523-GN; 97110-GO; 97161-GP; 97165-GO; A9500; C1769; G0008; G0009; G0378; G8978-GP-CH; G8979-GP-CH; G8980-GP-CH; G8987-GO-CI; G8988-GO-CI; G8989-GO-CI; G9168-GN-CJ; G9169-GN-CI; J1644; J1650; J2250; J2785; J3010; Q9967